=== PATIENT | male | born 1990 | race American Indian/Alaskan Native ===

== ENCOUNTER 2019-06-14 14:47 | Emergency (ER) | payer MEDICAID ==
[~2019-06-14] VITALS: Ht 182.9 cm; Wt 71.9 kg
[~2019-06-14 14:47] MED LIST: NEOM28.37 TP; PROM12.512 PO; SILV20CR13 TP
[2019-06-14] MEDS ORDERED: LORazepam 2 mg/ml vial IM ONE (15:20)
[2019-06-14] MEDS ORDERED: haloperidol lactate 5mg/ml inj IM ONE (15:20)
[2019-06-14 15:28] LABS: CLARITY,URINE CLEAR (Clear); COLOR,URINE STRAW (Yellow); GLUCOSE, URINE NEGATIVE (Neg); KETONES,URINE NEGATIVE (Neg); LEUKOCYTE ESTERASE ,URINE NEGATIVE (Neg); NITRITES, URINE NEGATIVE (Neg); OCCULT BLOOD,URINE NEGATIVE (Neg); PROTEIN,URINE NEGATIVE (Neg); UROBILINOGEN,URINE 0.2 E.U/dL (0.2-1.0)
[2019-06-14 15:30] LABS: UA COLLECTION TYPE CLN CATCH MIDSTREAM
[2019-06-14 15:33] LABS: URINE AMPHETAMINE SCREEN NEGATIVE (Neg); URINE BARBITUATE SCREEN NEGATIVE (Neg); URINE BENZODIAZEPINES SCREEN NEGATIVE (Neg); URINE CANNABINOID SCREEN POSITIVE (Neg); URINE COCAINE SCREEN NEGATIVE (Neg); URINE METHADONE SCREEN NEGATIVE (Neg); URINE OPIATE SCREEN NEGATIVE (Neg); URINE PHENCYCLIDINE SCREEN NEGATIVE (Neg)
--- NOTE | 2019-06-14 16:10 | NUR ---
XRAY IN WITH PT AT THIS TIME.
[2019-06-14 16:59] LABS: BASOPHILS % (AUTO) 0.8 % (0-1); EOSINOPHILS # (AUTO) 0.1 X10'3 (0-0.9); EOSINOPHILS % (AUTO) 1.9 % (0-6); HEMATOCRIT 39.9 % (42.0-52.0); HEMOGLOBIN 13.5 g/dl (14.0-17.9); LYMPHOCYTES # (AUTO) 1.1 X10'3 (1.1-4.8); LYMPHOCYTES % (AUTO) 23.4 % (21-51); MEAN CORPUSCULAR HEMOGLOBIN 31.1 PG (27.0-31.0); MEAN CORPUSCULAR HGB CONC 33.9 g/dL (33.0-36.5); MEAN CORPUSCULAR VOLUME 91.7 FL (78-98); MEAN PLATELET VOLUME 7.2 FL (7.4-10.4); MONOCYTES # (AUTO) 0.5 X10'3 (0-0.9); MONOCYTES % (AUTO) 10.9 % (2-12); PLATELET COUNT 213 X10'3 (140-440); RED BLOOD COUNT 4.34 X10'6 (4.70-6.10); RED CELL DISTRIBUTION WIDTH 13.2 % (11.5-14.5); WHITE BLOOD COUNT 4.8 X10'3 (4.5-11.0)
[2019-06-14 17:20] LABS: ALANINE AMINOTRANSFERASE 22 U/L (12-78); ALBUMIN 3.7 G/DL (3.4-5.0); ALBUMIN/GLOBULIN RATIO 1.4 (1.1-1.5); ALKALINE PHOSPHATASE 63 IU/L (46-116); ANION GAP 4 (8-16); ASPARTATE AMINO TRANSFERASE 14 U/L (10-37); BILIRUBIN,TOTAL 0.1 MG/DL (0.1-1.0); BLOOD UREA NITROGEN 11 MG/DL (7-18); BUN/CREATININE RATIO 13.6 (5.4-32.0); CALCIUM 8.5 MG/DL (8.5-10.1); CHLORIDE 109 MMOL/L (99-107); CREATININE 0.81 MG/DL (0.60-1.10); GLUCOSE 88 MG/DL (70-104); POTASSIUM 3.6 MMOL/L (3.5-5.1); SODIUM 144 MMOL/L (135-145); TOTAL PROTEIN 6.3 G/DL (6.4-8.2); eGFR > 90 ML/MIN
[2019-06-14 17:22] LABS: ETHANOL < 0.010 GM/DL (0.0-0.010)
--- NOTE | 2019-06-14 18:53 | NUR ---
packet faxed to [facility]
--- NOTE | 2019-06-14 20:30 | NUR ---
Charles selbyvish in [facility] - 06/15/19 at 0134 by MAYELIN Patient is awake and disoriented, delusional. Patient presents with disorganized thoughts, he looks to be responding to internal stimuli. Patient immediately goes to sleep.
--- NOTE | 2019-06-14 20:30 | NUR ---
Patient is awake and disoriented, delusional. Patient presents with disorganized thoughts, he looks to be responding to internal stimuli. Patient immediately goes to sleep.
--- NOTE | 2019-06-14 20:30 | NUR ---
Patient transfered from the main ER. Patient is cooperative, he immediately goes to sleep.
--- NOTE | 2019-06-14 20:35 | NUR ---
Patient awoke and ate a sandwich. He remails delusinal. Following the sandwich the patient returns to sleep.
--- NOTE | 2019-06-14 21:20 | NUR ---
Patient is sleeping quietly in a supine position.
--- NOTE | 2019-06-14 22:30 | NUR ---
Patient is sleeping on his left side. In view from nursing station.
--- NOTE | 2019-06-15 02:16 | NUR ---
Unable to complete patients med rec as patient is delusional and there is nothing listed on patients external med rec.
--- NOTE | 2019-06-15 02:21 | NUR ---
Patient awakens and ambulates to restroom. Upon return to bed patient is no oriented to person and year, he still remains delusional. Patient returns to sleep.
--- NOTE | 2019-06-15 03:20 | NUR ---
Patient is sleeping on his right side, in view from the nursing station.
--- NOTE | 2019-06-15 04:13 | NUR ---
Patient sleeping mid fowlers in bed.
--- NOTE | 2019-06-15 05:20 | NUR ---
Patient sleeping mid fowlers.
--- NOTE | 2019-06-15 06:01 | NUR ---
Patient remains sleeping.
--- NOTE | 2019-06-15 06:42 | NUR ---
Patient sleeping on left side. No distress observed. Continue to monitor.
--- NOTE | 2019-06-15 08:10 | NUR ---
Patient sitting up and eating breakfast. No distress observed. Continue to monitor.
--- NOTE | 2019-06-15 08:30 | NUR ---
Dr Jimenez, speaking to and evaluating patient. No distress observed. Continue to monitor.
--- NOTE | 2019-06-15 09:05 | NUR ---
Patient took magazines and book to read. No distress observed. Continue to monitor.
--- NOTE | 2019-06-15 10:20 | NUR ---
Patient sleeping on right side. No distress observed. Continue to monitor.
--- NOTE | 2019-06-15 10:35 | NUR ---
Mckenize FISCHER, evaluating patient. No distress observed. Continue to monitor.
--- NOTE | 2019-06-15 12:10 | NUR ---
[id number] Patient advised. Continue to monitor.
--- NOTE | 2019-06-15 12:37 | NUR ---
Patient sitting in his room and laughing and talking without anyone in the room. Patient appears to be responding to internal stimuli. Continue to monitor.
--- NOTE | 2019-06-15 14:10 | NUR ---
Patient sleeping supine. No distress observed. Continue to monitor.
--- NOTE | 2019-06-15 15:40 | NUR ---
Patient in room responding to internal stimuli. Patient tearfull and talking and putting his fingers tapping his heart. RN to ask Dr Jimenez for antipsychotic for patient. Continue to monitor.
[2019-06-15] MEDS ORDERED: OLANZapine 2.5MG tablet PO ONE (15:55)
--- NOTE | 2019-06-15 17:23 | NUR ---
Patient sleep supine. No distress observed. Continue to monitor.
--- NOTE | 2019-06-15 18:30 | NUR ---
Patient is resting quietly in supine position in bed.
--- NOTE | 2019-06-15 19:03 | NUR ---
Patient is awake and oriented to person, place, and year. Patient manifests some delusional behavior, he eats his full meal. Patient denies S/I or H/I. He does not acknowledge any hallucinations but there is some disorganized thought/speech. Patient is cooperative with staff. He returns to sleep quickly. Patients bed is in view from the nursing station.
--- NOTE | 2019-06-15 20:12 | NUR ---
Patient is sleeping on his right side.
--- NOTE | 2019-06-15 21:11 | NUR ---
Patient rotates into a prone position and returns to sleep.
--- NOTE | 2019-06-16 03:30 | NUR ---
Report given on this patient to JIA Stiles at [facility] in [place].
[2019-06-16 05:51] VITALS: BP 96/59
--- NOTE | 2019-06-16 06:30 | NUR ---
Patient sleeping on right side. No distress Observed. Continue to monitor.
--- NOTE | 2019-06-16 08:15 | NUR ---
Patient eating breakfast. No distress observed. Continue to monitor.
--- NOTE | 2019-06-16 10:05 | NUR ---
Patient standing in his room and facing the wall. Patient talking and appears to be responding to internal stimuli.
--- NOTE | 2019-06-16 11:23 | NUR ---
Patient sitting in his room and appears to be talking to someone. Patient appears to be responding to internal stimuli. Continue to monitor.
--- NOTE | 2019-06-16 13:00 | NUR ---
Patient eating lunch. No distress observed. Continue to monitor.
== END 2019-06-16 13:32 ==
LOC: ER 14:47
DX: S80.211A Abrasion, right knee, initial encounter (principal); R44.1 Visual hallucinations; R46.1 Bizarre personal appearance; R41.82 Altered mental status, unspecified; X58.XXXA Exposure to other specified factors, initial encounter; Y93.89 Activity, other specified; Y92.89 Other specified places as the place of occurrence of the external cause; Y99.8 Other external cause status
CPT/HCPCS: 36415; 73610; 73630; 80053; 80305; 80320; 81003; 84443; 85025; 96372; 99285; J1630; J2060